=== PATIENT | male | born 1960 | race Caucasian/White ===

== ENCOUNTER 2019-04-16 06:26 | Inpatient (IN) | payer BC ==
[2019-04-16] MEDS ORDERED: NA CHLORIDE 0.9% 1,000 ML ONE (07:00)
[2019-04-16 07:14] LABS: Urine Blood NEGATIVE (NEG); Urine Glucose NEGATIVE (NEG); Urine Protein 2+ (NEG); Urine pH 5.5 (5.0-7.0)
[2019-04-16 07:26] LABS: Albumin 3.3 g/dL (3.4-5.0); Bilirubin Direct 0.2 mg/dL (0-0.2); Bilirubin Total 0.7 mg/dL (0.2-1.0); Potassium 4.5 mmol/L (3.5-5.1); Protein, Total 7.1 g/dL (6.4-8.2)
[2019-04-16 08:00] LABS: Absolute Lymphocytes (CBC) 0.9 K/uL (0.7-4.9); Basophils % 0.2 % (0-1.3); Hematocrit 46.4 % (39.6-49.0); Lymphocytes % 7.1 % (15.3-44.8); MPV 9.1 fL (7.6-11.3); RBC Red Blood Cell Count 4.93 M/uL (4.33-5.43)
--- NOTE | 2019-04-16 08:13 | RAD REPORT ---
EXAM DESCRIPTION: CT - Abdomen Pelvis W Contrast - 04/16/2019 7:56 am CLINICAL HISTORY: ABD PAIN, history of hernia repair COMPARISON: None. TECHNIQUE: Biphasic, helical CT imaging of the abdomen and pelvis was performed following 100 ml non -ionic IV contrast. No oral contrast given. All CT scans are performed using dose optimization technique as appropriate and may include automated exposure control or mA/KV adjustment according to patient size. FINDINGS: No suspicious findings in the lung bases. The liver, spleen, and pancreas show no suspicious findings. Gallbladder and biliary tree are also wi thout suspicious finding. Symmetric renal function is seen with no hydronephrosis or suspicious renal mass. No pyelonephritis o r acute parenchymal process. Small renal cysts are present. No urinary bladder abnormality. Prostate gland and seminal vesicles are normal range. No adrenal abnormalities. No stomach or small bowel abnormality. The appendix is grossly abnormal. The appendix is retrocecal i n position. Appendix is dilated to at least 13 mm in the midportion with very poorly defined bennett. P erforation is suspected. There is edematous/inflammatory stranding surrounding the appendix. No free air. Tip of the cecum is minimally thickened. Moderate stool volume elsewhere in the right-side colon and transverse colon. Cecum and rectum are decompressed. No free air, free fluid or pneumatosis. No other area of inflammatory stranding. No hernia, mass or bulky lymphadenopathy. Postsurgical changes present from right inguinal hernia repair. No suspicious bony findings. IMPRESSION: Retrocecal acute appendicitis with suspected focal perforation in the midportion. No abscess or free air.
[2019-04-16] MEDS ORDERED: PIPER/TAZO/NS 3.375gm 3.375 GM/100 ML BAG ONE (08:18)
--- NOTE | 2019-04-16 08:26 | ER ---
Nurse's Notes [facility] Name: Gwyn Johnson Age: 58 yrs Sex: Male : 1960 Arrival Date: 04/16/2019 Time: 06:29 Bed 8 Private MD: Diagnosis: Acute appendicitis Presentation: 04/16 06:44 Presenting complaint: Patient states: "I started have pain on Friday and on Friday jd3 it didn't seem like it was going away. it started as what I think was food poisoning and I figured it must have turned into something more.". Transition of care: patient was not received from another setting of care. Onset of symptoms was April 13, 2019. Risk Assessment: Do you want to hurt yourself or someone else? Patient reports no desire to harm self or others. Initial Sepsis Screen: Does the patient meet any 2 criteria? No. Patient's initial sepsis screen is negative. Does the patient have a suspected source of infection? No. Patient's initial sepsis screen is negative. Care prior to arrival: Medication(s) given: Zofran and Tramadol. 06:44 Method Of Arrival: Ambulatory jd3 06:44 Acuity: CYNTHIA 3 jd3 Triage Assessment: 07:00 General: Appears in no apparent distress. comfortable, Behavior is calm, cooperative, bp appropriate for age. Pain: Complains of pain in left lower quadrant and right lower quadrant. Historical: - Allergies: 06:53 No Known Allergies; jd3 - Home Meds: 06:55 minocycline Oral [Active]; pravastatin oral oral [Active]; jd3 - PMHx: 06:55 rosacea; jd3 - PSHx: 06:53 right wrist; Hernia repair; jd3 - Immunization history:: Adult Immunizations up to date, Flu vaccine is up to date. - Social history:: Smoking status: Patient/guardian denies using tobacco. - Ebola Screening: : Patient negative for fever greater than or equal to 101.5 degrees Fahrenheit, and additional compatible Ebola Virus Disease symptoms. Screenin:55 Abuse screen: Denies threats or abuse. Denies injuries from another. Nutritional rr5 screening: No deficits noted. Tuberculosis screening: No symptoms or risk factors identified. Fall Risk IV access (20 points). Mental Status- Oriented to own ability (0 pts). Total Montoya Fall Scale indicates No Risk (0-24 pts). Assessment: 06:50 General: SEE TRIAGE NOTE. bp 07:05 Reassessment: RECD REPORT FROM AMADOU FERNNADEZ. 58YO WM P/W RLQ PAIN, R/O APPY. CT PENDING. bp 08:00 Reassessment: PT RETURNED FROM CT. ALL CURRENT ORDERS COMPLETED, RESULTS PENDING. hb 08:15 Reassessment: PER RAD REPORT, +APPY. hb Vital Signs: 06:55 BP 126 / 81; Pulse 87; Resp 19 S; Temp 98.3(O); Pulse Ox 100% on R/A; Weight 74.84 kg jd3 (R); Height 5 ft. 8 in. (172.72 cm) (R); Pain 8/10; 07:00 BP 124 / 78; Pulse 83; Resp 16; Pulse Ox 98% ; bp 08:00 BP 128 / 83; Pulse 85; Resp 16; Pulse Ox 99% ; hb 09:00 BP 116 / 70; Pulse 82; Resp 17; Pulse Ox 100% on R/A; sg 06:55 Body Mass Index 25.09 (74.84 kg, 172.72 cm) jd3 ED Course: 06:29 Patient arrived in ED. cl3 06:34 Cleveland Chacko PA is PHCP. [facility] 06:35 Carlos Eduardo Nevarez MD is Attending Physician. [facility] 06:50 Triage completed. jd3 06:50 No provider procedures requiring assistance completed. Inserted saline lock: 20 gauge rr5 in left antecubital area, using aseptic technique. Blood collected. 06:56 Arm band placed on. jd3 06:56 Patient has correct armband on for positive identification. Bed in low position. Call rr5 light in reach. Pulse ox on. NIBP on. 06:56 Patient has correct armband on for positive identification. Bed in low position. Call jd3 light in reach. Side rails up X 1. 07:06 Charli Duffy, REBECCA is Primary Nurse. sg 07:56 CT Abd/Pelvis - IV Contrast Only In Process Unspecified. EDMS 08:24 Abdulkadir Monte MD is Hospitalizing Provider. jmm Administered Medications: 07:08 Drug: NS 0.9% 1000 ml Route: IV; Rate: 1 bolus; Site: left antecubital; sg 08:17 Drug: Zosyn 3.375 grams Route: IVPB; Infused Over: 60 mins; Site: left antecubital; sg Outcome: 08:25 Decision to Hospitalize by Provider. anirudh 09:27 Admitted to OR accompanied by nurse, family with patient, via wheelchair, with chart, bp Report called to TRIXIE 09:27 Condition: stable 09:27 Instructed on the need for admit. 09:28 Patient left the ED. Signatures: Dispatcher [employer] EDCharli Smith RN RN Cleveland Cruz PA PA Peyton Cardona RN RN Sabino Dietz RN RN Elias Rueda RN RN bp Roque, Raymond, RN RN rr5 Lali Crow cl3
--- NOTE | 2019-04-16 08:27 | EDPHYS ---
Physician Documentation [facility] Name: Gwyn Johnson Age: 58 yrs Sex: Male : 1960 Arrival Date: 04/16/2019 Time: 06:29 Bed 8 Private MD: ED Physician Carlos Eduardo Nevarez HPI: 04/16 07:26 This 58 yrs old Male presents to ER via Ambulatory with complaints of jmm Possible Appendicitis. 07:26 The patient presents with abdominal pain. Onset: The symptoms/episode began/occurred jmm gradually, 3 day(s) ago. The symptoms do not radiate. Associated signs and symptoms: Pertinent positives: vomiting, Pertinent negatives: testicular pain. The symptoms are described as achy. This is a 58 year old male with a history of rosacea that presents to the ED with complaints of lower abdominal pain, vomiting. Symptoms began 3 days ago. Patient denies diarrhea. . Historical: - Allergies: 06:53 No Known Allergies; jd3 - Home Meds: 06:55 minocycline Oral [Active]; pravastatin oral oral [Active]; jd3 - PMHx: 06:55 rosacea; jd3 - PSHx: 06:53 right wrist; Hernia repair; jd3 - Immunization history:: Adult Immunizations up to date, Flu vaccine is up to date. - Social history:: Smoking status: Patient/guardian denies using tobacco. - Ebola Screening: : Patient negative for fever greater than or equal to 101.5 degrees Fahrenheit, and additional compatible Ebola Virus Disease symptoms. ROS: 07:26 Constitutional: Negative for fever, chills, and weight loss, Cardiovascular: Negative jmm for chest pain, palpitations, and edema, Respiratory: Negative for shortness of breath, cough, wheezing, and pleuritic chest pain. 07:26 Abdomen/GI: Positive for abdominal pain, nausea and vomiting. 07:26 All other systems are negative. Exam: 07:26 Constitutional: This is a well developed, well nourished patient who is awake, alert, jmm and in no acute distress. Head/Face: atraumatic. Eyes: EOMI, no conjunctival erythema appreciated ENT: Moist Mucus Membranes Neck: Trachea midline, Supple Chest/axilla: Normal chest wall appearance and motion. Cardiovascular: Regular rate and rhythm. No edema appreciated Respiratory: Normal respirations, no respiratory distress appreciated 07:26 Abdomen/GI: Inspection: abdomen appears normal, Bowel sounds: normal, Palpation: soft, moderate abdominal tenderness, in the right lower quadrant and left lower quadrant. 07:26 Back: ROM is normal. 07:26 Musculoskeletal/extremity: ROM: intact in all extremities. 07:26 Skin: Appearance: Color: normal in color. 07:26 Neuro: Orientation: is normal, Mentation: is normal, Memory: is normal. 07:26 Psych: Behavior/mood is pleasant, cooperative. Vital Signs: 06:55 BP 126 / 81; Pulse 87; Resp 19 S; Temp 98.3(O); Pulse Ox 100% on R/A; Weight 74.84 kg jd3 (R); Height 5 ft. 8 in. (172.72 cm) (R); Pain 8/10; 07:00 BP 124 / 78; Pulse 83; Resp 16; Pulse Ox 98% ; bp 08:00 BP 128 / 83; Pulse 85; Resp 16; Pulse Ox 99% ; hb 09:00 BP 116 / 70; Pulse 82; Resp 17; Pulse Ox 100% on R/A; sg 06:55 Body Mass Index 25.09 (74.84 kg, 172.72 cm) jd3 MDM: 06:37 Patient medically screened. faith 08:23 Data reviewed: vital signs, nurses notes. Counseling: I had a detailed discussion with anirudh the patient and/or guardian regarding: the historical points, exam findings, and any diagnostic results supporting the discharge/admit diagnosis, lab results, radiology results, the need for further work-up and treatment in the hospital. ED course: I discussed the patient with Dr. Monte whom accepted admission. . 04/16 06:43 Order name: Basic Metabolic Panel; Complete Time: 07:30 [facility] 04/16 06:43 Order name: CBC with Diff [facility] 04/16 06:43 Order name: Creatinine for Radiology; Complete Time: 07:30 [facility] 04/16 06:43 Order name: Hepatic Function; Complete Time: 07:30 [facility] 04/16 06:43 Order name: Lipase; Complete Time: 07:30 [facility] 04/16 07:06 Order name: Urine Dipstick--Ancillary (enter results) 04/16 07:14 Order name: Urine Dipstick-Ancillary [facility] 04/16 08:34 Order name: Basic Metabolic Panel EDMS 04/16 08:34 Order name: Basic Metabolic Panel EDMS 04/16 08:34 Order name: CBC with Automated Diff [facility] 04/16 08:34 Order name: CBC with Automated Diff [facility] 04/16 08:34 Order name: Lipase [facility] 04/16 08:34 Order name: Lipase [facility] 04/16 08:34 Order name: Liver (Hepatic) Function [facility] 04/16 06:43 Order name: IV Saline Lock; Complete Time: 06:55 [facility] 04/16 06:43 Order name: Labs collected and sent; Complete Time: 06:55 [facility] 04/16 06:43 Order name: CT Abd/Pelvis - IV Contrast Only; Complete Time: 08:16 [facility] 04/16 06:43 Order name: Urine Dipstick-Ancillary (obtain specimen); Complete Time: 07:06 [facility] 04/16 08:34 Order name: NPO [facility] 04/16 08:34 Order name: Liver (Hepatic) Function [facility] Administered Medications: 07:08 Drug: NS 0.9% 1000 ml Route: IV; Rate: 1 bolus; Site: left antecubital; sg 08:17 Drug: Zosyn 3.375 grams Route: IVPB; Infused Over: 60 mins; Site: left antecubital; sg Disposition: 12:01 Co-signature as Attending Physician, Carlos Eduardo Nevarez MD I agree with the assessment and [facility] plan of care. Disposition: 04/16/19 08:25 Hospitalization ordered by Abdulkadir Monte for Inpatient Admission. Preliminary diagnosis is Acute appendicitis. - Bed requested for Telemetry/MedSurg (Inpatient). - Status is Inpatient Admission. hb - Condition is Stable. - Problem is new. - Symptoms are unchanged. UTI on Admission? No Signatures: Dispatcher [employer] [facility] Charli Duffy RN RN sg Anderson, Corey, MD MD cha Mickail, Joel, PA PA jmm Baxter, Heather, RN RN hb Davies, Jonathon, RN RN jd3 Corrections: (The following items were deleted from the chart) 09:28 08:25 Hospitalization Ordered by Abdulkadir Monte MD for Inpatient Admission. Preliminary hb diagnosis is Acute appendicitis. Bed requested for Telemetry/MedSurg (Inpatient). Status is Inpatient Admission. Condition is Stable. Problem is new. Symptoms are unchanged. UTI on Admission? No. jmm
[2019-04-16] MEDS ORDERED: MORPHINE 4 MG/ML SYR IV PRN (08:31)
[2019-04-16] MEDS ORDERED: ONDANSETRON 4 MG/2 ML VIAL IV PRN ×2 (08:31→13:27)
[2019-04-16] MEDS ORDERED: ACETAMINOPHEN 500 MG TAB PO PRN (08:31)
[2019-04-16] MEDS ORDERED: D5 0.45 NS 1,000 ML IV SCH (09:00)
[2019-04-16] MEDS ORDERED: PIPER/TAZO/NS 3.375gm 3.375 GM/100 ML BAG IVPB SCH (09:00)
[2019-04-16] MEDS ORDERED: Ringers Lactate 1,000 ML IV ONE ×2 (09:39→10:14)
[2019-04-16 10:01] LABS: Blood Morphology Comment NOT SEEN (NOT SEEN); Platelet Estimate ADEQ; Urine White Blood Cell Casts OK
[2019-04-16] MEDS ORDERED: CEFAZOLIN/SWI 1gm 0 GM/0 ML SYR ONE (10:14)
[2019-04-16] MEDS ORDERED: BUPIVACAINE 0.5% PF 10 ML VIAL ONE (11:04)
[2019-04-16] MEDS ORDERED: MIDAZOLAM HCL 2 MG/2 ML INJ ONE (11:12)
[2019-04-16] MEDS ORDERED: propofoL 200 MG/20 ML VIAL IV ONE (11:12)
[2019-04-16] MEDS ORDERED: GLYCOPYRROLATE 0.2 MG/ML SYR ONE (11:12)
[2019-04-16] MEDS ORDERED: LIDOCAINE 2% MPF 5 ML VIAL ONE (11:13)
[2019-04-16] MEDS ORDERED: FENTANYL CITR 100 MCG/2 ML ONE (11:19)
[2019-04-16] MEDS ORDERED: KETOROLAC 30 MG/ML INJ ONE (11:27)
[2019-04-16] MEDS ORDERED: MEPERIDINE HCL 25 MG/0.5 ML ONE (11:34)
[2019-04-16] MEDS ORDERED: HYDROMORPHONE HCL 1 MG/ML INJ ONE (12:59)
[2019-04-16] MEDS ORDERED: HYDROMORPHONE HCL 1 MG/ML INJ IV PRN (13:30)
--- NOTE | 2019-04-16 14:04 | PREOPHP ---
Date of Admission: 04/16/2019 Chief Complaint: Abdominal pain. History Of Present Illness: Patient is a 58-year-old gentleman, comes in with 3-day history of right mid and right lower quadrant abdominal pain, associated with nausea and vomiting. Denies diarrhea o r constipation. No blood in his stool. No dysuria or hematuria. No sore throat, runny nose, cough, headaches, or dizziness. No chest pain. No fever or chills. Diminished appetite. Review of Systems: Otherwise unremarkable. Past Medical History: Negative. Past Surgical History: Right inguinal hernia repair and right wrist surgery. Allergies: NONE. Social History: Patient does not smoke. Drinks occasionally. Family History: Noncontributory. Physical Examination: Vital Signs: Stable. Afebrile. General: Awake, alert, and oriented x3. Head and Neck: Cranial nerves 2 through 12 are grossly within normal limits. No neck masses. No JV D. Throat clear. Neck is supple. Chest: Clear. Heart: S1, S2. Abdomen: Soft, nondistended. Positive bowel sounds. Positive right lower quadrant tenderness with rebound. Mild rigidity. Extremities: Adequately perfused. Nontender. Neuro: Nonfocal. Laboratory Data: White count is slightly elevated at 12,000. Electrolytes are within normal limits. Imaging Data: CT of the abdomen and pelvis is consistent with acute retrocecal appendicitis with pos sible perforation. Assessment: Acute appendicitis. Plan: Admit, n.p.o., IV fluid, IV antibiotic, to the OR for laparoscopic appendectomy, possible open . Patient understands the risks, benefits, and alternatives and agrees to procedure. MAREN/COLLEEN Voice ID: [id number]
[2019-04-16 14:08] VITALS: BMI 25.0
[2019-04-16] MEDS: Ringers Lactate 1,000 ML IV SCH (14:19)
[2019-04-16] MEDS: HYDROCODONE/APAP 7.5/325 MG TAB PO PRN (16:23)
[2019-04-16] MEDS: PIPER/TAZO/NS 3.375gm 3.375 GM/100 ML BAG IVPB SCH (16:23)
[2019-04-16] MEDS ORDERED: TRAZODONE 50 MG TABLET PO PRN (19:25)
[2019-04-16] MEDS ORDERED: DOCUSATE NA 100 MG CAP PO PRN (19:26)
--- NOTE | 2019-04-16 23:11 | OP ---
Date of Procedure: 04/16/2019 Surgeon: Abdulkadir Monte MD Design Supervisor: LASHAWN Arana Preoperative Diagnosis: Acute appendicitis. Postoperative Diagnosis: Acute retrocecal perforated appendicitis. Estimated Blood Loss: Minimal. Specimen: Appendix. Findings: As above. Anesthesia: General. Complications: None. Drains: PREETI #10, flat. Disposition: The patient tolerated the procedure in stable condition and taken to Recovery in good g eneral condition. Description Of Procedure: Patient was brought to the OR and placed in supine position. General anes thesia was begun. Patient was prepped and draped in usual sterile fashion. Marcaine 0.5% was infilt rated locally, 15 blade was used to make a 1 cm supraumbilical midline incision. Subcutaneous tissue divided. The fascia was identified and divided. A #1 Vicryl stay suture was placed. Peritoneal ca vity was entered with sharp and blunt dissection. 12-mm trocar was placed into the peritoneal cavity under direct vision. Pneumoperitoneum was established. A 5 mm trocar was placed in the suprapubic region, in the left lower quadrant under direct vision and then laparoscopy revealed acute retrocecal perforated appendicitis with some pus next to the appendix. The appendix was freed from the cecum a nd the ascending colon with sharp and blunt dissection. Base of the appendix on the cecum was clearl y identified. Endo-ELODIA stapling device was used to divide the base of the appendix as well as the me soappendix and the appendix was retrieved through the umbilicus via an EndoCatch bag. There was quit e a bit of inflammatory omental adhesions present on the lateral aspect of the colon. This was debri ded as much as possible. The entire right pericolic gutter, right upper quadrant, and pelvis were th oroughly irrigated. Effluent was clear. No evidence of bleeding or bowel injury appreciated. Jacks on-George drain #10 flat was placed, secured with 3-0 nylon, and then stay sutures were tied to each o ther across the fascial defect. Subcu wounds were irrigated. Bleeding controlled with cautery. 3-0 chromic was used for subcutaneous tissue and ange used to close skin and sterile dressing was patti lied. Patient was awakened and taken to Recovery in good general condition. /MODL Voice ID: [id number] Report ID: [id number]
[2019-04-17] MEDS: PIPER/TAZO/NS 3.375gm 3.375 GM/100 ML BAG IVPB SCH ×3 (00:44→16:08)
[2019-04-17] MEDS: Ringers Lactate 1,000 ML IV SCH ×3 (00:46→19:27)
[2019-04-17] MEDS: HYDROCODONE/APAP 7.5/325 MG TAB PO PRN (05:42)
[2019-04-17 06:33] LABS: Absolute Lymphocytes (CBC) 0.6 K/uL (0.7-4.9); Basophils % 0.4 % (0-1.3); Hematocrit 35.5 % (39.6-49.0); Lymphocytes % 10.7 % (15.3-44.8); MPV 8.3 fL (7.6-11.3); RBC Red Blood Cell Count 3.81 M/uL (4.33-5.43)
[2019-04-17 06:43] LABS: Albumin 2.5 g/dL (3.4-5.0); Bilirubin Direct 0.2 mg/dL (0-0.2); Bilirubin Total 0.7 mg/dL (0.2-1.0); Magnesium 1.9 mg/dL (1.8-2.4); Phosphorus 2.1 mg/dL (2.5-4.9); Potassium 3.6 mmol/L (3.5-5.1); Protein, Total 5.8 g/dL (6.4-8.2)
[2019-04-17] MEDS ORDERED: POTASSIUM 25 MEQ EFFERV TAB PO ONE (08:00)
[2019-04-17] MEDS ORDERED: POTASSIUM PHOS IN 0.9 % NACL 15 MMOL/250 ML BAG IV ONE (08:00)
[2019-04-17] MEDS: POTASS/SODIUM PHOSPHATE 1 PKT POWD.PACK PO SCH ×3 (09:43→11:48)
--- NOTE | 2019-04-17 13:25 | PN ---
Date of Progress Note: 04/17/2019 Subjective: Patient is awake, alert, has not had a bowel movement. He is tolerating diet, ambulatin g, pain controlled on parenteral pain medication. Afebrile. Objective: Vital Signs: Stable. He is afebrile currently. Abdomen: Slightly distended. Slightly hypoactive bowel sounds, but no tenderness, no rebound, no ri gidity or guarding. Laboratory Data: Reviewed. White count is 6000. Left shift has improved. Chemistry reviewed. His potassium is low, it is being replaced. Assessment: Status post laparoscopic appendectomy for perforated acute retrocecal appendicitis. Recommendations: Concern about patient developing ileus, therefore will keep him in the hospital ano ther day. Continue IV antibiotics. I have encouraged ambulation and incentive spirometry and contin ue IV antibiotics. Clinically, he is stable and improving slowly, but because he had pus inside of h is belly, I anticipate that he is at high risk for an ileus and we will monitor and treat for that. /MODL Voice ID: [id number] Report ID: [id number]
[2019-04-18] MEDS: PIPER/TAZO/NS 3.375gm 3.375 GM/100 ML BAG IVPB SCH ×2 (00:14→08:17)
[2019-04-18 05:30] VITALS: O2SAT 95
[2019-04-18 06:00] LABS: Phosphorus 2.3 mg/dL (2.5-4.9); Potassium 3.7 mmol/L (3.5-5.1)
[2019-04-18] MEDS ORDERED: POTASSIUM PHOS IN 0.9 % NACL 15 MMOL/250 ML BAG IV ONE (07:29)
[2019-04-18 10:53] VITALS: BP 147/82; TEMP 97.4
--- NOTE | 2019-04-19 08:53 | DS ---
Date of Discharge: 04/18/2019 Admission Diagnosis: Acute appendicitis. Discharge Diagnosis: Acute retrocecal perforated appendicitis. Hospital Course: Patient is a 58-year-old gentleman who underwent a laparoscopic appendectomy for th e aforementioned diagnosis. Postoperatively he is tolerating diet, ambulating, pain controlled with p.o. pain medication, afebrile. His white count is normal. PREETI drain is putting out serous fluid and his abdominal exam is unremarkable, therefore patient will be discharged to home. Disposition: Home. Condition: Stable. Resume home medications and diet. Activity: As tolerated. No heavy lifting. Remove outer dressing in a.m. Shower. Keep wound clean and dry, record PREETI output q.12, bring record to office, strip tubing p.r.n., Cipro 500 mg p.o. q.12, Flagyl 500 mg p.o. q.6, Tylenol No.3 one tablet p.o. q.4 p.r.n. pain. /AGAPITOL Voice ID: [id number] Report ID: [id number]
== END 2019-04-18 13:00 | disposition home or self-care (01) | DRG 340 ==
LOC: ER 06:26 → DS 08:29 → 2ND 13:02
PROVIDERS: ADMIT Surgery; ATTEND Surgery
PROC: 0DTJ4ZZ Resection of Appendix, Percutaneous Endoscopic Approach (ICD-10-PCS; principal; 2019-04-16 10:30)
DX: K35.32 Acute appendicitis with perforation, localized peritonitis, and gangrene, without abscess (principal)
CPT/HCPCS: 36415; 74177; 80048; 80076; 81003; 83690; 83735; 84100; 85025; 88304; 96374; 99285; J0690; J1170; J2175; J2250; J2405; J2543; J2704; J3010; J7030; J7120; Q9967